=== PATIENT | female | born 1970 | race Caucasian/White ===

== ENCOUNTER 2019-03-05 17:37 | Observation (INO) | payer OTHER, SELFPAY ==
[2019-03-05 17:46] VITALS: BP 130/89; PULSE 98; RESP 20; O2SAT 98; BMI 29.9
--- NOTE | 2019-03-05 18:06 | DI.CT.S_ITS ---
PROCEDURE: CT HEAD/BRAIN WO CON INDICATIONS: cva symptoms since sunday TECHNIQUE: Noncontrast 4.5 mm thick angled axial sections acquired from the foramen magnum to the vertex, with coronal and sagittal reformats. For radiation dose reduction, the following was used: automated exposure control, adjustment of mA and/or kV according to patient size. COMPARISON: None. FINDINGS: Image quality: Excellent. CSF spaces: Basal cisterns are patent. No extra-axial fluid collections. Right lateral ventricle is asymmetrically enlarged compared to the left side with no discrete space-occupying lesion or adjacent parenchymal abnormal density. Brain: No midline shift. No intracranial masses or hemorrhage. Franco-white matter interface is normal. Skull and face: Calvarium and visualized facial bones are intact, without suspicious lesions. Sinuses: Visualized sinuses and mastoids are clear. IMPRESSION: 1. No CT evidence of acute infarction, intracranial bleed or midline shift. 2. Asymmetrically enlarged right lateral ventricle with no discrete space-occupying lesion or adjacent parenchymal abnormality. Findings may represent congenital process. Comparison with prior study if available can be helpful. Dictated by: Dino Parikh M.D. on 03/05/2019 at 18:39 Approved by: Dino Parikh M.D. on 03/05/2019 at 18:44
--- NOTE | 2019-03-05 18:23 | ED_ITS ---
HPI - Neuro Symptoms/Deficit General Chief Complaint: Neuro Symptoms/Deficit Stated Complaint: THINKS POSSIBLY HAVING A STROKE Time Seen by Provider: 03/05/19 18:13 Source: patient Mode of arrival: ambulatory Limitations: no limitations History of Present Illness HPI Narrative: Patient is a 48-year-old female who presents with headache difficulty walking and some numbness. She had a history of migraines spinal st enosis she has been having headaches and 6 days she states that her balance is significantly off more than usual. She does have bright foot drop from her previous spinal surgeries she favors her left leg but he says over last 6 days her balance is not right. She feels like the left side of her face and tongue are numb and maybe her left arm at times. She can't pinpoint when exactly any of the weakness or difficulty walking started. She has been nauseous but only the 1st couple of days when her headache was bad her was also sick with like gastroenteritis so she was not sure that was part of it. He has been having heart palpitations off and on as well. She is worried because her mother suddenly age of 42 for unknown causes Onset (ago): day(s) (6) On Anticoagulants: No Related Data Home Medications Medication Instructions Recorded Confirmed albuterol sulfate [ProAir HFA] 2 puff INHALATION Q4-6H PRN 03/05/19 03/05/19 estradiol 1 mg PO DAILY 03/05/19 03/05/19 pregabalin [Lyrica] 75 mg PO BID 03/05/19 03/05/19 tramadol 50 mg PO Q6H 03/05/19 03/05/19 Allergies Allergy/AdvReac Type Severity Reaction Status Date / Time codeine Allergy Anaphylaxis Verified 03/05/19 17:52 meperidine [From Demerol] Allergy Anaphylaxis Verified 03/05/19 17:52 morphine Allergy Anaphylaxis Verified 03/05/19 17:52 hydrocodone AdvReac Rash Verified 03/05/19 17:52 Review of Systems Review of Systems ROS Unobtainable: All systems reviewed & are unremarkable except as noted in HPI and below Constitutional Constitutional: Denies chills, Denies fever(s), Denies lethargy and Denies weakness Eyes Eyes: Denies change in vision, Denies eye discharge, Denies irritation and Denies loss of vision ENT Ears, Nose, Mouth, and Throat: Denies change in voice, Denies neck pain and Denies sore throat Cardiovascular Cardiovascular: Denies chest pain, Denies irregular heart rhythm, Denies lightheadedness, Denies palpitations, Denies dyspnea, Denies dyspnea on exertion and Denies orthopnea Respiratory Respiratory: Denies cough, Denies dyspnea, Denies dyspnea on exertion and Denies wheezing Gastrointestinal Gastrointestinal: Denies abdominal pain, Denies change in bowel habits, Denies diarrhea, Denies nausea and Denies vomiting Genitourinary Genitourinary: Denies hematuria, Denies flank pain, Denies urinary incontinence and Denies urinary urgency Musculoskeletal Musculoskeletal: Reports as per HPI and Denies neck pain Integumentary/Breasts Skin/Breast: Denies pruritus, Denies erythema, Denies rash and Denies wounds Neurologic Neurologic: Reports as per HPI, Denies loss of vision and Denies weakness Endocrine Endocrine: Denies palpitations Allergic/Immunologic Allergic/Immunologic: Denies wheezing [facility] Medical History Acquired right foot drop (Acute) Exercise-induced asthma (Acute) Rotator cuff arthropathy of both shoulders (Acute) Surgical History H/O total hysterectomy (Acute) History of bladder surgery (Acute) History of lumbar laminectomy (Acute) History of spinal fusion (Acute) S/P bilateral foot surgery (Acute) Social History (Updated 03/05/19 @ 18:45 by Patricia Diamond DO) marital status: Smoking Status: Never smoker Social History marital status: Smoking Status: Never smoker Exam Initial Vital Signs Initial Vital Signs: Vital Signs Pulse Rate 98 H 03/05/19 17:46 Respiratory Rate 20 03/05/19 17:46 Blood Pressure 130/89 03/05/19 17:46 Pulse Oximetry 98 03/05/19 17:46 GENERAL: Well-appearing, well-nourished and in no acute distress. HEENT: Head atraumatic,EOMI, pupils reactive, face symmetric, moist mucous membranes CARDIOVASCULAR: Regular rate and rhythm without murmurs, rubs or gallops. RESPIRATORY: Breath sounds equal bilaterally, no wheezes rales or rhonchi. ABDOMEN: Soft, nontender. Normoactive bowel sounds all 4 quadrants. No guarding or rebound. : No CVA tenderness EXTREMITIES: Normal range of motion, no clubbing or edema. Neurovascularly intact NEUROLOGICAL: Alert and oriented x4.Normal gait and speech. Cranial nerves II through XII grossly intact. Good [id number], difficulty with heel to centeno with left leg she has baseline difficulty with her right leg due to footdrop difficult to assess, strength equal bilaterally, no dysarthria or aphasia, decreased sensation to left face rest of extremities within normal limits, no visual changes, no facial droop SKIN: Warm, dry, no laceration, no petechiae, no rashes or lesions. Scores NIH Stroke Scale Level of Conciousness: Alert, keenly responsive Ask month/age: Answers both questions correctly. Open/close eyes, close hand: Performs both tasks correctly Best gaze horizontal: Normal Visual corbett: No visual loss Facial palsy: Normal symetrical movement Left arm drift: No drift for full 10 sec Right arm drift: No drift for full 10 sec Left leg drift: No drift for full 10 sec Right leg drift: No drift for full 10 sec Limb ataxia: Present in one limb Sensory on face/arms/legs: Mild to moderate sensory loss, can tell touch Best language: No aphasia, normal Dysarthria: Normal Extinction or inattention: No abnormality Total NIH Stroke scale score: 2 Course Orders Ordered: ED Orders 03/05/19 18:34 EKG-12 Lead Stat 03/05/19 18:48 Basic Metabolic Panel Stat Complete Blood Count AUTO DIFF Stat Magnesium Urgent Partial Thromboplastin Time Stat Prothrombin Time INR Stat Troponin I Stat 03/05/19 21:10 Consult to Discharge Planning Routine Consult to Occupational Therapy Evaluate & Treat 03/05/19 21:12 Consult to Physical Therapy Evaluate & Treat 03/05/19 21:13 Consult to Discharge Planning Routine Consult to Occupational Therapy Evaluate & Treat Consult to Physical Therapy Evaluate & Treat Consult to Speech Therapy Evaluate & Treat MR stroke Routine Education, smoking cessation ONGOING Acetaminophen (Tylenol) 650 mg PO Q4HR PRN PRN Reason: As Needed for Fever/Mild Pain Albuterol (Ventolin) 2.5 mg INH [id number] PRN PRN Reason: Shortness Of Breath Or Wheezing Aspirin (Aspirin Ec) 81 mg PO DAILY LESLIE Atorvastatin Calcium (Lipitor) 20 mg PO BEDTIME LESLIE Last Admin: 03/05/19 22:01 Dose: Not Given Documented by: BRADY Heparin Sodium (Porcine) (Heparin) 5,000 unit SUBCUT BID [facility] Sodium Chloride (Normal Saline 0.9%) 1,000 mls @ 100 mls/hr IV CONT [facility] Last Infusion: 03/06/19 02:40 Dose: 100 mls/hr Documented by: Admin: 03/05/19 21:45 Dose: 125 mls/hr Documented by: BRADY Ketorolac Tromethamine (Toradol) 30 mg IV Q6HR [facility] Stop: 03/10/19 21:07 Last Admin: 03/05/19 23:57 Dose: 30 mg Documented by: MADISON Ondansetron HCl (Zofran) 4 mg IV Q8HR PRN PRN Reason: Nausea And Vomiting Pregabalin (Lyrica) 75 mg PO BID LESLIE Tramadol HCl (Ultram) 50 mg PO QID PRN PRN Reason: Pain, Moderate (4-6) Discontinued Medications Aspirin (Aspirin Chew) 324 mg PO NOW ONE Stop: 03/05/19 19:52 Last Admin: 03/05/19 19:56 Dose: 324 mg Documented by: NANCY Sodium Chloride (Normal Saline 0.9%) 1,000 mls @ 150 mls/hr IV CONT [facility] Last Infusion: 03/05/19 20:59 Dose: 150 mls/hr Documented by: Admin: 03/05/19 19:19 Dose: 150 mls/hr Documented by: NANCY Ketorolac Tromethamine (Toradol) 30 mg IV NOW ONE Stop: 03/05/19 19:52 Last Admin: 03/05/19 19:56 Dose: 30 mg Documented by: NANCY Vital Signs Vital signs: Vital Signs - 8 hr 03/05/19 19:20 03/05/19 20:58 Temperature 98.6 F Pulse Rate 93 H 64 Respiratory Rate 22 16 Blood Pressure 120/67 Blood Pressure [Right Arm] 119/77 Pulse Oximetry 99 98 MDM - Neuro Symptoms/Deficit Lab Data Attestation: I reviewed the patient's lab results. Result diagrams: 03/05/19 18:48 03/05/19 18:48 Labs: Lab Results 03/05/19 03/05/19 03/05/19 Range/Units 18:48 18:48 18:48 WBC 6.9 (4.5-11.0) X10^3/uL RBC 4.30 (4.0-5.2) X10^6/uL Hgb 12.8 (12.0-16.0) g/dL Hct 38.4 (36-46) % MCV 89.3 (80-100) fL MCH 29.8 (26-34) PG MCHC 33.4 (30-36) % RDW 13.0 (11.6-14.8) % Plt Count 233 (150-400) X10^3/uL Neut % (Auto) 62.6 (50-75) % Lymph % (Auto) 27.2 (25-40) % Sebastian % (Auto) 8.0 (3-14) % Eos % (Auto) 1.5 L (2-4) % Baso % (Auto) 0.7 (0-2) % Neut # (Auto) 4300 (4453-7719) /uL Lymph # (Auto) 1900 (9567-9139) /uL Sebastian # (Auto) 600 (0-900) /uL Eos # (Auto) 100 (0-450) /uL Baso # (Auto) 0 (0-100) /uL PT 10.7 (10.1-12.7) SECONDS INR 0.9 (0.9-1.3) APTT 36 (26.4-36.2) SECONDS Sodium 139 (137-145) mmol/L Potassium 3.9 (3.4-5.1) mmol/L Chloride 102 (98-107) mmol/L Carbon Dioxide 28 (22-32) mmol/L BUN 15 (7-17) mg/dL Creatinine 0.70 (0.52-1.04) mg/dL Estimated GFR > 60.0 (>60) mL/min BUN/Creatinine Ratio 21.4 (6-22) Glucose 108 H (70-100) mg/dL Hemoglobin A1c (4.0-6.0) % Calcium 9.4 (8.4-10.2) mg/dL Magnesium (1.6-2.3) mg/dL Troponin I < 0.012 (0.01-0.034) ng/mL 03/05/19 03/05/19 Range/Units 18:48 18:48 WBC (4.5-11.0) X10^3/uL RBC (4.0-5.2) X10^6/uL Hgb (12.0-16.0) g/dL Hct (36-46) % MCV (80-100) fL MCH (26-34) PG MCHC (30-36) % RDW (11.6-14.8) % Plt Count (150-400) X10^3/uL Neut % (Auto) (50-75) % Lymph % (Auto) (25-40) % Sebastian % (Auto) (3-14) % Eos % (Auto) (2-4) % Baso % (Auto) (0-2) % Neut # (Auto) (3029-2622) /uL Lymph # (Auto) (5293-0696) /uL Sebastian # (Auto) (0-900) /uL Eos # (Auto) (0-450) /uL Baso # (Auto) (0-100) /uL PT (10.1-12.7) SECONDS INR (0.9-1.3) APTT (26.4-36.2) SECONDS Sodium (137-145) mmol/L Potassium (3.4-5.1) mmol/L Chloride (98-107) mmol/L Carbon Dioxide (22-32) mmol/L BUN (7-17) mg/dL Creatinine (0.52-1.04) mg/dL Estimated GFR (>60) mL/min BUN/Creatinine Ratio (6-22) Glucose (70-100) mg/dL Hemoglobin A1c 5.5 (4.0-6.0) % Calcium (8.4-10.2) mg/dL Magnesium 2.0 (1.6-2.3) mg/dL Troponin I (0.01-0.034) ng/mL Point of Care Testing Glucose POC 103 Urine Dip Bedside Urine Glucose Negative Bedside Urine Bilirubin - Negative Bedside Urine Ketone - Negative Urine Specific Sidney 1.030 Bedside Urine Occult Blood - Negative Bedside Urine pH 5.5 Bedside Urine Protein +/- 15 Bedside Urine Urobilinogen - Negative Bedside Urine Nitrite - Negative Bedside Urine Leukocytes - Negative Esterase Imaging Data CT scan - head: Radiologist's impression: PROCEDURE: CT HEAD/BRAIN WO CON INDICATIONS: unsteady gait TECHNIQUE: Noncontrast 4.5 mm thick angled axial sections acquired from the foramen magnum to the vertex, with coronal and sagittal reformats. For radiation dose reduction, the following was used: automated exposure control, adjustment of mA and/or kV according to patient size. COMPARISON: [facility], CT, CT HEAD/BRAIN WO DONNA, 03/03/2019, 14:13. FINDINGS: Image quality: Excellent. CSF spaces: Basal cisterns are patent. No extra-axial fluid collections. The ventricles are symmetric in size and shape. Brain: No intracranial bleeds or masses. There is cerebral volume loss for age, with resultant ventricular and sulcal prominence. There are periventricular and deep white matter chronic small vessel ischemic changes. Stable 5-6 mm calcification overlying left parietal region unchanged from prior studies. There is intracranial internal carotid artery atherosclerosis. Skull and face: Calvarium and visualized facial bones appear intact, without suspicious lesions. Sinuses: Again noted is opacification of left maxillary sinus suggestive of chronic sinusitis. IMPRESSION: 1. No CT evidence of acute intracranial pathology. No significant changes from previous studies. 2. Age-appropriate atrophy and mild to moderate periventricular white matter microangiopathic changes. 3. Stable likely a tiny calcified meningioma in left parietal region. 4. Stable chronic left maxillary sinusitis. Dictated by: Dino Parikh M.D. on 03/05/2019 at 18:54 Approved by: Dino Parikh M.D. on 03/05/2019 at 18:56 ECG Data Attestation: I personally reviewed and interpreted this ECG as follows: Prior ECG tracings: not available for review Interpretation: Normal sinus rhythm rate 79 p.r. interval [address] changes no T-wave inversions MDM Narrative Medical decision making narrative: The patient's symptoms are not acute they have been ongoing for number of days they are however progressively getting worse with increasing numbness on her face and difficulty walking. She is certainly not a tPA candidate. Symptoms initially started with what seemed like a migraine headache to her. Certainly this could be a continuation of possibly complicated migraine however with increasing numbness certainly concern for CVA. She will need an MRI with progressive worsening symptoms. Unfortunately not able to get at this time Differential diagnosis includes TIA versus CVA versus complicated migraine. Patient's pain improved after Toradol. She is also given aspirin prophylactically. Jaspal PETERSON except for observation. Discharge Plan Departure Patient Disposition: Admitted as Observation Clinical Impression: Brain TIA Discharge Date/Time: 03/05/19 21:14 Admit Date/Time: 03/05/19 21:12 Admit Provider: Dav Shay
--- NOTE | 2019-03-05 18:55 | PC.NURSE ---
pt reports headache/pressure starting on sunday. pt notice intermittent left hand numbness and weakness. states when she is typing at times fingers will slip and she has to shake them. pt also reports left mouth numbness, states she has to think about it when shes talking to move her tongue appropriately. pt seen at walk in clinic and given antibiotics for sinus.
[2019-03-05 18:57] LABS: Add Manual Diff / Slide Review NO; Basophils Absolute Auto 0 /uL (0-100); Basophils Percent Auto 0.7 % (0-2); Eosinophils Absolute Auto 100 /uL (0-450); Eosinophils Percent Auto 1.5 % (2-4); Hematocrit 38.4 % (36-46); Hemoglobin 12.8 g/dL (12.0-16.0); Lymphocytes Absolute Auto 1900 /uL (1100-4500); Lymphocytes Percent Auto 27.2 % (25-40); Mean Corpuscular HGB Conc 33.4 % (30-36); Mean Corpuscular Hemoglobin 29.8 PG (26-34); Mean Corpuscular Volume 89.3 fL (80-100); Monocytes Absolute Auto 600 /uL (0-900); Neutrophils Absolute Auto 4300 /uL (1500-7000); Neutrophils Percent Auto 62.6 % (50-75); Platelet Count 233 X10^3/uL (150-400); White Blood Cell Count 6.9 X10^3/uL (4.5-11.0)
[2019-03-05 19:04] LABS: INR 0.9 (0.9-1.3); Prothrombin Time 10.7 SECONDS (10.1-12.7)
[2019-03-05 19:07] LABS: BUN Creatinine Ratio 21.4 (6-22); Blood Urea Nitrogen 15 mg/dL (7-17); Calcium 9.4 mg/dL (8.4-10.2); Carbon Dioxide 28 mmol/L (22-32); Chloride 102 mmol/L (98-107); Estimated Glomerular Filt Rate > 60.0 mL/min (>60); Glucose 108 mg/dL (70-100); HEMOLYSIS < 15 (0-50); PTT Partial Thromboplastin Tim 36 SECONDS (26.4-36.2); Potassium 3.9 mmol/L (3.4-5.1); Sodium 139 mmol/L (137-145)
[2019-03-05 19:19] LABS: Troponin I < 0.012 ng/mL (0.01-0.034)
[2019-03-05] MEDS: SODIUM CHLORIDE 0.9% 1,000 ML 150 ML IV (19:19)
[2019-03-05 19:20] VITALS: BP 119/77; PULSE 93; RESP 22; TEMP 37; O2SAT 99
[2019-03-05] MEDS: KETOROLAC 60 MG/2 ML VIAL 30 MG IV (19:56)
[2019-03-05] MEDS: ASPIRIN 81 MG CHEW TAB 324 MG PO (19:56)
[2019-03-05 20:58] VITALS: BP 120/67; PULSE 64; RESP 16; O2SAT 98
--- NOTE | 2019-03-05 21:13 | DI.MRI.S_ITS ---
PROCEDURE: MR STROKE Pre- and post-contrast brain MRI, non-contrast brain MR angiogram, pre- and postcontrast neck MR angiogram INDICATIONS: CVA, left facial and upper extremity numbness TECHNIQUE: Brain: Noncontrast axial T1 spin echo, axial T2 fast spin echo, sagittal and axial FLAIR, coronal T2 fast spin echo, axial gradient echo, axial diffusion and ADC through the brain. After the administration of contrast, axial 3D VIBE of the cranial vasculature and brain. Brain MRA: Non-contrast 3-D time of flight MR angiogram, with multiple zrvyeec-rddislagi-psvkzsirmd (MIP) reformats performed. Neck MRA: Axial and sagittal TruFISP through the neck. Coronal dynamic MR angiogram during administration of contrast in the arterial and venous phases, with 3-dimenstional tglykwl-vqohunvsd-rmazrpcrkh (MIP) reformats constructed from subtraction images. COMPARISON: [facility], CT, CT HEAD/BRAIN WO CON, 03/05/2019, 18:16. FINDINGS: Image quality: Excellent. BRAIN: CSF spaces: There is a right ventricle is larger than the left. No mass can be seen to cause this. No shift of the midline septum to the left of 6 mm, without ivette midline shift. Basal cisterns are patent. No extra-axial fluid collections. Brain: No intracranial bleeds or mass effects. Franco-white matter interface is normal. Diffusion weighted images show no acute ischemic insults. Brainstem appears normal. Normal intravascular flow voids are present. No abnormal intracranial enhancement. Skull and face: Calvarial marrow signal is normal. Orbits appear normal. Sinuses: Sinuses and mastoids are clear. BRAIN MR ANGIOGRAM: Anterior circulation: Intracranial internal carotid arteries are normal in size and enhancement. The flow within the paired anterior cerebral arteries is normal and symmetric. The flow within the middle cerebral arteries is normal and symmetric. The anterior communicating artery is seen. No stenoses, occlusions, or aneurysms. Posterior circulation: The visualized portions of the vertebral arteries demonstrate normal caliber, and join to form a normal appearing basilar artery. The flow within the posterior cerebral arteries is normal and symmetric. No stenoses, occlusions, or aneurysms. NECK MR ANGIOGRAM: Carotids: Great vessels demonstrate a conventional anatomy as they arise from the aortic arch. The origins of the common carotid arteries appear patent. The calibers and courses of both common carotid arteries are normal. The bifurcation regions appear normal bilaterally. The internal carotid arteries demonstrate normal course and caliber. Posterior circulation: The origins of the vertebral arteries appear patent. More superior portions of both vertebral arteries demonstrate normal course and caliber, and join to form a normal appearing basilar artery. Miscellaneous: Subclavian arteries appear patent. Pre-contrast images through the neck show no soft tissue abnormalities. IMPRESSION: BRAIN MRI: No findings of acute or subacute infarction can be seen. Asymmetry is noted of the lateral ventricles, with the right larger than the left. No masses can be seen causing this and this is felt most likely to be benign and congenital in nature. No masses or abnormal enhancement can be seen. BRAIN MR ANGIOGRAM: No significant intracranial arterial abnormality is seen. NECK MR ANGIOGRAM: Within the arteries of the neck, no hemodynamically significant stenosis can be seen. Dictated by: Kishore Jones M.D. on 03/06/2019 at 9:51 Approved by: Kishore Jones M.D. on 03/06/2019 at 10:00
--- NOTE | 2019-03-05 21:18 | DI.ECHO.S_ITS ---
[facility] +---------+ : : [address] : : : : [id number] : : : : Phone: [phone] Echocardiogram Report + + :Name: YOLANDA NIELSEN Study Date: 03/06/2019 Height: 66 in : :[facility] Exam Location: [place] Weight: 186 lb : : Gender: Female BSA: 1.9 m2 : :: 1970 Age: 48 yrs BP: 110/70 mmHg: :Reason For Study: CVA : : Performed By: Leonid Lawson : :Referring: CHANNING LYNN : + + Interpretation Summary 1) Normal left ventricular thickness, size, wall motion, and systolic function (EF 60-65%). 2) Normal right ventricular size and function. 3) No significant valvular abnormalities. 4) Injection of contrast with valsalva documented an interatrial shunt. 5) No prior Echo available for comparison. Procedure: A two-dimensional transthoracic echocardiogram with color flow and Doppler was performed. The study quality was technically good. There is no prior echocardiogram noted for this patient. A saline contrast injection was performed to assess for cardiac shunting. The patient was in normal sinus rhythm during the exam. Left Ventricle: The left ventricle is normal in size. There is normal left ventricular wall thickness. The ejection fraction is estimated to be 60-65%. There are no focal wall motion abnormalities. Right Ventricle: The right ventricle is normal in size and function. Atria: Both atria are normal in size. Injection of contrast with valsalva documented an interatrial shunt. Mitral Valve: The mitral valve is normal in structure and function. There is trace mitral regurgitation. Aortic Valve: The aortic valve is trileaflet. The aortic valve opens well. No aortic regurgitation is present. Tricuspid Valve: The tricuspid valve is normal in structure and function. There is mild tricuspid regurgitation. The right ventricular systolic pressure is estimated to be at least 23 mmHg based on an estimated right atrial pressure of 3 mm Hg. Pulmonic Valve: The pulmonic valve is normal in structure and function. There is trace pulmonic regurgitation. Great Vessels: The aortic root is normal size. The dimensions of the ascending aorta are normal. The pulmonary artery is normal size. The IVC is of normal diameter and collapses greater than 50% with a sniff. This suggests a low right atrial pressure of 3 mm Hg. Pericardium/ Pleura There is no pericardial effusion. There is no pleural effusion. MMode/2D Measurements & Calculations LVIDd: 5.0 cm LVOT diam: 2.0 cm LVIDs: 3.4 cm Ao root diam: 3.1 cm FS: 31.4 % Aortic Jxn: 2.6 cm EPSS: 0.65 cm asc Aorta Diam: 3.2 cm IVSd: 0.76 cm LVPWd: 0.95 cm LV garcia. diameter/BSA (cm/m^2): 2.6 LV sys. diameter/BSA (cm/m^2): 1.8 LA dimension: 3.2 cm RA long axis: 4.7 cm LA A2 area: 20.7 cm2 RA area: 15.5 cm2 LA A4 area: 17.5 cm2 RA vol: 43.7 ml LA length (vol): 5.0 cm RA : 22.5 ml/m2 LA vol: 61.6 ml IVC diam: 1.2 cm LA vol index: 31.8 ml/m2 Doppler Measurements & Calculations Ao V2 max: 114.4 cm/sec LVOT Max Destin: 102.6 cm/sec Ao V2 mean: 89.3 cm/sec LV V1 max P.2 mmHg Ao max P.2 mmHg LV V1 VTI: 24.8 cm Ao mean P.2 mmHg COCO(I,D): 2.9 cm2 Ao V2 VTI: 25.7 cm COCO(V,D): 2.7 cm2 sev ratio: 0.96 COCO indexed to BSA (cm^2/m^2): 1.5 MV E max destin: 62.4 cm/sec TR max destin: 221.9 cm/sec MV A max destin: 39.0 cm/sec TR max P.7 mmHg MV E/A: 1.6 PA V2 max: 57.0 cm/sec Med Peak E' Destin: 11.0 cm/sec PA V2 mean: 42.8 cm/sec E/E' med: 5.7 PA mean P.79 mmHg Lat Peak E' Destin: 14.2 cm/sec PA pr(Accel): 11.6 mmHg E/E' lat: 4.4 PA Accel Time: 0.14 sec E/e' average: 5.0 MV dec time: 0.21 sec SV(LVOT): 75.2 ml Reading Physician:10:59 AM
--- NOTE | 2019-03-05 21:21 | PM.HP.1 ---
History of Present Illness History of Present Illness Date Patient Seen: 03/05/19 Time Patient Seen: 20:22 Chief complaint: THINKS POSSIBLY HAVING A STROKE Narrative: Ms. Lee is a right-handed 48-year-old female with a prior history of migraines, spinal stenosis, multiple spinal surgeries with right foot drop, exercise-induced asthma and mild postural orthostatic tachycardia syndrome who presents to the ER today with persistent headache for 6 days. The patient states her symptoms began 6 days ago with a severe headache on Sunday. She describes the symptoms as quick in onset and at that time had pressure behind the eyes and face. On Sunday she went to urgent care related to to nausea and facial pressure and was started on Augmentin for sinus infection. The patient has developed associated symptoms of photosensitivity, visual changes bilaterally with inability to focus but denies visual field loss, episodic dizziness and left arm numbness. She has now developed left face and tongue numbness prompting her presentation to the emergency department. The patient complains of ongoing frontal headache rated at 4.5/10 and improving following Toradol, reports ongoing difficulty focusing without diplopia, no complaints of dizziness. She denies difficulty chewing or swallowing. She reports no recent fevers or chills and has no complaints of chest pain though she has been feeling palpitations since the onset of her headache. She denies shortness of breath or cough. She reports no abdominal pain, nausea vomiting, diarrhea or constipation. She has a history of frequent UTIs but denies dysuria but does report frequency but she relates to her spinal stenosis. She Has a right footdrop following spinal surgery and has an AFO that she does not use consistently and as such has falls related to this. Upon arrival in the ER the patient is afebrile with a temperature of 98.6?, heart rate of 98, blood pressure 130/89, respirations of 20 saturating 98% on room air. The patient was evaluated with a CT which found right lateral ventricle with symmetrical enlargement over left without presence of lesions or parenchymal density, acute infarct, intracranial bleed or midline shift. An EKG is obtained which find sinus rhythm without ectopy or block. On laboratory analysis she has a normal white cell count at 6.9 hemoglobin of 12.8, hematocrit of 30.4 and platelets 233. Her coags are all within normal limits as are all her chemistry findings. She has nonfasting glucose of 108 and her troponin is less than 0.012. This time the patient is admitted for ongoing evaluation workup for her neurological symptoms, rule out CVA. Patient History Medical History (Updated 03/05/19 @ 22:18 by KRISTEN Robison) Acquired right foot drop (Acute) Exercise-induced asthma (Acute) Rotator cuff arthropathy of both shoulders (Acute) Surgical History (Updated 03/05/19 @ 21:59 by Karissa Luz RN) H/O total hysterectomy (Acute) History of bladder surgery (Acute) History of lumbar laminectomy (Acute) History of spinal fusion (Acute) S/P bilateral foot surgery (Acute) Social History (Updated 03/05/19 @ 18:45 by Patricia Diamond DO) marital status: Smoking Status: Never smoker Family & Social History Safety & Behavioral: Feels Safe in Current Yes Environment Been Physically Hurt or No Threatened By a Person Tobacco & Substance use: Smoking Status Never smoker alcohol intake frequency holiday/special occasion Substance Use Type does not use Comment: Patient lives in a single family 2 story house with her Matthew. Her parents are both with her mother passing away at age 42 from it VT or CVA, her father had a history of asbestosis rheumatoid arthritis and lung transplant and was on dialysis and circ come to a head injury. She has 1 brother to whom she is estranged and is unsure of his health history but believes he has had kidney stones. She has a daughter has postural orthostatic tachycardic syndrome. 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 Smoking: Patient has never smoked. Alcohol: Patient consumes a couple of glasses of wine per month. Substance use: Patient denies recreation pharmaceuticals, herbal or cannabis products. Advanced directives: The patient does not have an advanced directive. In direct discussion with the patient she states her wish to be FULL CODE but does not want long-term life support. She designates her Matthew to be her surrogate decision maker. Meds Home Medications and Allergies Home Medications Medication Instructions Recorded Confirmed Type albuterol sulfate [ProAir HFA] 2 puff INHALATION Q4-6H PRN 03/05/19 03/05/19 History estradiol 1 mg PO DAILY 03/05/19 03/05/19 History pregabalin [Lyrica] 75 mg PO BID 03/05/19 03/05/19 History tramadol 50 mg PO Q6H 03/05/19 03/05/19 History Allergies Allergy/AdvReac Type Severity Reaction Status Date / Time codeine Allergy Anaphylaxis Verified 03/05/19 17:52 meperidine [From Demerol] Allergy Anaphylaxis Verified 03/05/19 17:52 morphine Allergy Anaphylaxis Verified 03/05/19 17:52 hydrocodone AdvReac Rash Verified 03/05/19 17:52 Review of Systems Review of Systems ROS Unobtainable: All systems reviewed & are unremarkable except as noted in HPI and below Exam Vital Signs (past 8 hours): - 03/05/19 17:46 03/05/19 19:20 03/05/19 20:58 Temperature 98.6 F Pulse Rate 98 H 93 H 64 Respiratory Rate 20 22 16 Blood Pressure 130/89 120/67 Blood Pressure [Right Arm] 119/77 Pulse Oximetry 98 99 98 Oxygen Delivery Method Room Air Narrative Exam Narrative: GENERAL APPEARANCE: well developed, overweight female with a BMI of 31.6, in moderate discomfort. HEAD: slight facial droop, atraumatic, no scalp lesions. EYES: No ptosis, photosensitivity right greater than left, pupils equal, round, reactive to light and accommodation, visual corbett intact, sclera non-icteric, extraocular movement intact without nystagmus. EARS: normal external structures, no ear pain NOSE: Increased head pain with sinus percussion ORAL CAVITY: mucosa moist without lesions or exudate, palate normal, tongue in midline. THROAT: normal, no erythema, no exudate, posterior pharynx normal. NECK/THYROID: neck pain on palpation without palpable muscular tension or spasms, no jugular venous distention, no carotid bruit, no thyromegaly, trachea midline. LYMPH NODES: no cervical or supraclavicular lymphadenopathy. SKIN: warm and dry, no suspicious lesions, no rashes, good turgor. HEART: regular rate and rhythm, S1-S2 without murmur, no rubs or gallops, brisk capillary refill, no edema LUNGS: clear to auscultation bilaterally, no coarseness crackles or wheezing, no cough present CHEST: Symmetrical movement, no accessory muscle use, shortness of breath but no pain to AP and lateral compression. ABDOMEN: Soft, no distention, no epigastric or abdominal tenderness on palpation, no guarding or peritoneal signs, no organomegaly, active bowel tones. BACK: Back pain with right straight leg raise EXTREMITIES: moves all extremities, no drift, gross motor is 5/5 and symmetrical, right foot drop, no deformities or joint effusions. 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 PSYCH: alert, briskly responsive, cognitive function and recall are intact, good eye contact, appropriate with stable behavior Objective Labs Result Diagrams: 03/05/19 18:48 03/05/19 18:48 Labs: Laboratory Results - last 24 hr 03/05/19 03/05/19 03/05/19 18:48 18:48 18:48 WBC 6.9 RBC 4.30 Hgb 12.8 Hct 38.4 MCV 89.3 MCH 29.8 MCHC 33.4 RDW 13.0 Plt Count 233 Neut % (Auto) 62.6 Lymph % (Auto) 27.2 Parker % (Auto) 8.0 Eos % (Auto) 1.5 L Baso % (Auto) 0.7 Neut # (Auto) 4300 Lymph # (Auto) 1900 Parker # (Auto) 600 Eos # (Auto) 100 Baso # (Auto) 0 PT 10.7 INR 0.9 APTT 36 Sodium 139 Potassium 3.9 Chloride 102 Carbon Dioxide 28 BUN 15 Creatinine 0.70 Estimated GFR > 60.0 BUN/Creatinine Ratio 21.4 Glucose 108 H Calcium 9.4 Troponin I < 0.012 Assessment & Plan Assessment & Plan narrative: This is a 48-year-old female patient who had an onset of severe headache 6 days ago and has persisted since. Patient has had associated symptoms including visual disturbances both a photosensitivity as well as difficulty focusing, nausea, ataxia and presents with left facial numbness and droop and left upper extremity numbness. 1. Acute severe headache with left face and arm numbness, rule out CVA, present on admission. -risk factor of hormone replacement therapy with estradiol but no known history of hypertension, diabetes or hyperlipidemia. -patient has had severe headaches 6 days in duration, associated visual changes, episodes of dizziness, left face and left upper extremity numbness -patient with prior history of migraines varying in frequency with last migraine 1 week before this episode, previously migraines have been non hemiparetic, this is a change in headache presentation. -head CT finds symmetrically enlarged right lateral ventricle without hydrocephalus. No evidence of lesion or parenchymal density, no acute infarct or bleed. -patient reports neck pain, is afebrile, negative Kernig's or Brudzinski sign., white count is normal with no coagulopathy or electrolyte derangement or hyperglycemia -aspirin 324 mg given in the ER, will continue aspirin 81 mg daily. -NPO except meds. Speech therapy for swallow evaluation. -obtain MR stroke, echocardiogram in the morning. -PT and OT to consult and treat. -obtain lipid panel, TSH and hemoglobin A1c 2. Chronic migraine headaches, active -symptoms are now inconsistent with prior migraines, reports non characteristic symptoms, has never been hemiparetic or lasted this long. -will continue to treat pain with Toradol or tramadol. 3. Chronic postural orthostatic hypotensive syndrome, active. -patient denies complaints of dizziness and describes her symptoms as mild presenting with rapid movement from sitting to standing. -she does endorse episodes of sudden onsets of dizziness within the last week sustaining no trauma. -maintain adequate hydration, normal saline 125 cc/hour 4. Chronic spinal stenosis following multiple back surgeries and fusion, stable. -patient with chronic back pain following trauma in 2002. Subsequent spinal fusion in 2006. -patient with residual right footdrop following surgery. Inconsistently uses AFO brace due to ill fit. Denies left leg weakness. -continue home medications of tramadol 50 mg every 6 hours as needed for pain, Lyrica 75 mg twice daily. -PT and OT to evaluate and treat. 5. Chronic Exercise-induced asthma, stable, not present on admission. -no evidence of wheezing with adequate oxygenation 96-98% on room air. No complaints of shortness of breath or wheezing. -RT to consult, albuterol neb as needed. The patient is admitted to the hospital for continued treatment and evaluation of neurological symptoms and rule out migraine versus CVA versus hydrocephalus. The patient is admitted as an inpatient with expected length of stay to be greater than 2 midnights. Scores GCS [place] coma scale eye opening: Spontaneous [place] coma scale verbal response: Orientated Newton coma scale motor response: Obey commands Newton coma scale total score: 15 NIHSS Level of Conciousness: Alert, keenly responsive Ask month/age: Answers both questions correctly. Open/close eyes, close hand: Performs both tasks correctly Best gaze horizontal: Normal Visual corbett: No visual loss Facial palsy: Minor paralysis, flattened nasolabial fold, asymmetry on smiling Left arm drift: No drift for full 10 sec Right arm drift: No drift for full 10 sec Left leg drift: No drift for full 5 sec Right leg drift: No drift for full 5 sec Limb ataxia: Absent Sensory on face/arms/legs: Mild to moderate sensory loss, can tell touch Best language: No aphasia, normal Dysarthria: Normal Extinction or inattention: No abnormality Total NIH Stroke scale score: 2
[2019-03-05 21:24] VITALS: BMI 29.9
[2019-03-05 21:30] VITALS: BP 113/70; PULSE 59; RESP 20; TEMP 36.4; O2SAT 96
[2019-03-05 21:35] LABS: Hemoglobin A1C% w Est Avg Glu 5.5 % (4.0-6.0)
[2019-03-05] MEDS: SODIUM CHLORIDE 0.9% 1,000 ML 125 ML IV (21:45)
--- NOTE | 2019-03-05 21:51 | PC.ADMIT ---
[facility] Admission Note: The patient,YOLANDA NIELSEN,48 y/o, was given written information regarding hospital policies, unit procedures and contact persons. Patient's smoking status: Never smoker. Vital Signs - 8 hr 03/05/19 17:46 03/05/19 19:20 03/05/19 20:58 Temperature 98.6 F Pulse Rate 98 H 93 H 64 Respiratory Rate 20 22 16 Blood Pressure 130/89 120/67 Blood Pressure [Right Arm] 119/77 Pulse Oximetry 98 99 98 03/05/19 21:30 Temperature 97.6 F Pulse Rate 59 L Respiratory Rate 20 Blood Pressure 113/70 Blood Pressure [Right Arm] Pulse Oximetry 96 Patient admitted to AC room 211 from ED, alert and oriented. independently ambulatory in room. Oriented to room, environment and plan of care.
[2019-03-05 22:45] VITALS: BMI 31.6
[2019-03-05 23:00] VITALS: O2SAT 97
[2019-03-05] MEDS: KETOROLAC 30 MG/ML VIAL IV (23:57)
[2019-03-05 23:59] VITALS: BP 114/72; PULSE 65; RESP 16; TEMP 36.1; O2SAT 96
--- NOTE | 2019-03-06 00:25 | PC.NURSE ---
Addendum entered by Tia Ward R.N. 03/06/19 06:07: NIH now 3 as no longer seeing a left facial droop. Numbness continues in left upper lip, tongue and cheek and now states numbness in left arm which she states comes and goes. Also has chronic numbness in right leg. States pain after taking Tramadol is now 4/10; medicated with scheduled Toradol. Addendum entered by Tia Ward R.N. 03/06/19 05:01: 0415 Correction to previous entries: NIH was actually 4 and is currently remains at a 4. States headache is 6/10 so medicated with Tramadol with sips water as per h&p note as is otherwise NPO. Assisted to bathroom and voided 200cc dark betzy urine and UA sent to lab. Addendum entered by Tia Ward R.N. 03/06/19 02:22: NIH remains 3. Numbness of left lower lip resolved but still has numbness in left upper lip, tongue and cheek. Original Note: Patient is alert and oriented. Breath sounds diminished at bases but CTA with RA sat of 96%; on continuous oximetry. HRR with telemetry reading of SR at 0000. Denies nausea. BT present and abdomen is soft. Denies dysuria, frequency or urgency. Reports chronic, intermittent numbness of right LE. Currently with NIH of 3 due to left arm/leg drift and numbness of left tongue, lip and cheek. Reports several near falls in recent months so instructed to call for assistance when getting out of bed; verbalizes understanding. Complains of headache; medicated with scheduled Toradol. Able to turn self in bed. Wearing bilateral SCD's. Fall risk score is moderate; bed alarm is activated.
[2019-03-06 04:30] VITALS: BP 114/68; PULSE 55; RESP 16; TEMP 36.3; O2SAT 99
[2019-03-06] MEDS: TRAMADOL 50 MG TABLET PO (04:48)
[2019-03-06 04:57] LABS: Appearance Urine UA CLEAR; Bilirubin Urine UA NEGATIVE (NEGATIVE); Color Urine UA YELLOW; Glucose Urine UA NEGATIVE (Negative); Ketones Urine UA NEGATIVE (NEGATIVE); Leukocyte Esterase Urine UA NEGATIVE (NEGATIVE); Nitrite Urine UA NEGATIVE (Negative); Occult Blood Urine UA NEGATIVE (Negative); Protein Urine UA NEGATIVE (Negative); Specific Gravity Urine UA >=1.030 (1.000-1.035); Urobilinogen Urine UA 0.2 E.U./dL (0.2); pH Urine UA 5.5 (4.5-8.0)
[2019-03-06 05:09] LABS: Urine Amphetamines Negative (Negative); Urine Barbiturates Negative (Negative); Urine Benzodiazepines Negative (Negative); Urine Cocaine Negative (Negative); Urine MDMA Negative (Negative); Urine Methadone Negative (Negative); Urine Methamphetamines Negative (Negative); Urine Morphine/Opi cutoff 2000 Negative (Negative); Urine Oxycodone Negative (Negative); Urine Phencyclidine Negative (Negative); Urine Tetrahydrocannabinol Negative (Negative); Urine Tricyclic Antidepressant Negative (Negative)
[2019-03-06 05:21] LABS: Bacteria Urine Occasional (0-1); Culture Indicated Urine Cult Not Indicated; RBC Urine 0-1/HPF (0-5/HPF); Squamous Epithelial Cell Urine 5-10 /HPF (0-5/HPF); WBC Urine 1-5/HPF (0-5/HPF)
[2019-03-06] MEDS: KETOROLAC 30 MG/ML VIAL IV ×2 (05:59→11:43)
[2019-03-06 06:25] LABS: Add Manual Diff / Slide Review NO; Basophils Absolute Auto 0 /uL (0-100); Basophils Percent Auto 0.8 % (0-2); Eosinophils Absolute Auto 100 /uL (0-450); Eosinophils Percent Auto 2.1 % (2-4); Hematocrit 37.6 % (36-46); Hemoglobin 12.9 g/dL (12.0-16.0); Lymphocytes Absolute Auto 1700 /uL (1100-4500); Lymphocytes Percent Auto 42.9 % (25-40); Mean Corpuscular HGB Conc 34.3 % (30-36); Mean Corpuscular Hemoglobin 30.3 PG (26-34); Mean Corpuscular Volume 88.4 fL (80-100); Monocytes Absolute Auto 400 /uL (0-900); Monocytes Percent Auto 9.7 % (3-14); Neutrophils Absolute Auto 1800 /uL (1500-7000); Neutrophils Percent Auto 44.5 % (50-75); Platelet Count 203 X10^3/uL (150-400); Red Blood Cell Count 4.25 X10^6/uL (4.0-5.2); Red Cell Distribution Width 13.1 % (11.6-14.8)
[2019-03-06 06:30] LABS: BUN Creatinine Ratio 21.4 (6-22); Blood Urea Nitrogen 15 mg/dL (7-17); Calcium 8.7 mg/dL (8.4-10.2); Carbon Dioxide 29 mmol/L (22-32); Chloride 104 mmol/L (98-107); Estimated Glomerular Filt Rate > 60.0 mL/min (>60); Glucose 126 mg/dL (70-100); HEMOLYSIS < 15 (0-50); Potassium 3.8 mmol/L (3.4-5.1); Sodium 141 mmol/L (137-145)
[2019-03-06 06:32] LABS: Cholesterol 164 mg/dL (140-199); HDL Cholesterol 44 mg/dL (40-60); LDL Cholesterol Calculated 93 mg/dL (<100); Triglycerides 136 mg/dL (35-150)
[2019-03-06 07:01] LABS: Thyroid Stimulating Hormone 0.76 uIU/mL (0.47-4.68)
[2019-03-06 08:00] VITALS: BP 110/70; PULSE 67; RESP 16; TEMP 36.5; O2SAT 98
[2019-03-06 08:30] VITALS: O2SAT 98
[2019-03-06] MEDS: SODIUM CHLORIDE 0.9% 1,000 ML 100 ML IV (08:35)
[2019-03-06] MEDS: HEPARIN 5,000 UNIT/ML VIAL 5000 UNIT SUBCUT (08:37)
[2019-03-06] MEDS: ASPIRIN EC 81 MG TABLET PO (08:37)
[2019-03-06] MEDS: PREGABALIN 75 MG CAPSULE PO (08:37)
--- NOTE | 2019-03-06 10:21 | PC.NURSE ---
Pt to MRI for stroke protocol via w/c, IV helplocked.
[2019-03-06] MEDS: SUMAtriptan 25 MG TABLET 100 MG PO (11:43)
--- NOTE | 2019-03-06 12:27 | PT-IP ANOTE ---
Physical therapy order received. Chart reviewed. Spoke with her nurse and the physician. Pt is up moving independently in her room. She has a supportive Spouse at home. No skilled physical therapy needs identified at this time. Will discharge PT order.
--- NOTE | 2019-03-06 12:32 | OT.IP.TRT ---
Current Diagnoses Transient cerebral ischemic attack, unspecified (03/05/19) Cerebral infarction, unspecified (03/05/19) Spinal stenosis, site unspecified (03/05/19) Personal history of other diseases of the musculoskeletal system and connective tissue (03/05/19) Occupational Therapy Treatment Note M3 OT- IP Subjective and Pain Start: 03/06/19 12:28 Freq: Status: Active Protocol: Document 03/06/19 12:28 [facility] (Rec: 03/06/19 12:32 [facility] [id number]) OT- Subjective Occupational Therapy Visit Type Type Patient Refusal Notes Approached pt for OT eval, pt feels that she is at baseline level and states has been independent in the room. Pt has supportive who will assist pt as needed. Pt refusing OT eval at this time.
--- NOTE | 2019-03-06 14:41 | P.DS_ITS ---
History of Present Illness History of Present Illness Date Patient Seen: 03/05/19 Chief complaint: THINKS POSSIBLY HAVING A STROKE Narrative: Written by Dav PETERSON: Ms. Lee is a right-handed 48-year-old female with a prior history of migraines, spinal stenosis, multiple spinal surgeries with right foot drop, exercise-induced asthma and mild postural orthostatic tachycardia syndrome who presents to the ER today with persistent headache for 6 days. The patient states her symptoms began 6 days ago with a severe headache on Sunday. She describes the symptoms as quick in onset and at that time had pressure behind the eyes and face. On Sunday she went to urgent care related to to nausea and facial pressure and was started on Augmentin for sinus infection. The patient has developed associated symptoms of photosensitivity, visual changes b ilaterally with inability to focus but denies visual field loss, episodic dizziness and left arm numbness. She has now developed left face and tongue numbness prompting her presentation to the emergency department. The patient complains of ongoing frontal headache rated at 4.5/10 and improving following Toradol, reports ongoing difficulty focusing without diplopia, no complaints of dizziness. She denies difficulty chewing or swallowing. She reports no recent fevers or chills and has no complaints of chest pain though she has been feeling palpitations since the onset of her headache. She denies shortness of breath or cough. She reports no abdominal pain, nausea vomiting, diarrhea or con stipation. She has a history of frequent UTIs but denies dysuria but does report frequency but she relates to her spinal stenosis. She Has a right footdrop following spinal surgery and has an AFO that she does not use consistently and as such has falls related to this. Upon arrival in the ER the patient is afebrile with a temperature of 98.6?, heart rate of 98, blood pressure 130/89, respirations of 20 saturating 98% on room air. The patient was evaluated with a CT which found right lateral ventricle with symmetrical enlargement over left without presence of lesions or parenchymal density, acute infarct, intracranial bleed or midline shift. An EKG is obtained which find sinus rhythm without ectopy or block. On laboratory analysis she has a normal white cell count at 6.9 hemoglobin of 12.8, hematocrit of 30.4 and platelets 233. Her coags are all within normal limits as are all her chemistry findings. She has nonfasting glucose of 108 and her troponin is less than 0.012. This time the patient is admitted for ongoing evaluation workup for her neurological symptoms, rule out CVA. Discharge Providers Provider Date of admission: 03/05/19 21:12 Discharge Date: 03/06/19 Consults: 03/05/19 21:10 Consult to Discharge Planning Routine Comment: Consult to Occupational Therapy Evaluate & Treat Comment: CVA, LUE weak and numb, ataxia, falls Physician Instructions: Evaluate and treat 03/05/19 21:12 Consult to Physical Therapy Evaluate & Treat Comment: CVA, LUE weak and numb, ataxia, falls Physician Instructions: Evaluate and Treat 03/05/19 21:13 Consult to Discharge Planning Routine Comment: Consult to Occupational Therapy Evaluate & Treat Comment: Physician Instructions: Evaluate and treat Consult to Physical Therapy Evaluate & Treat Comment: Physician Instructions: Evaluate and Treat Consult to Speech Therapy Evaluate & Treat Comment: CVA, left facial, left upper extremity numbness Physician Instructions: Evaluate and treat 03/05/19 21:33 Consult to Respiratory Therapy Evaluate & Treat Comment: Exercise induced asthma Physician Instructions: Evaluate and treat Discharge provider: Shilpa Murphy DO Summary Hospital Course Discharge Diagnosis: 1. Acute on chronic complex migraine with face and arm numbness and left facial droop, present on admission. Resolved. CVA ruled out. 2. Chronic postural orthostatic hypotensive syndrome, present on admission. Stable. 3. Chronic spinal stenosis, status post multiple back surgeries and fusion, present on admission. Stable. 4. Chronic exercise-induced asthma, not present on admission. Stable. Hospital Course: Esha Almaguer is a 48-year-old female with a past medical history signi ficant for spinal stenosis, postural orthostatic hypotension syndrome, and chronic migraine headaches who presented to the ED with severe progressive migraine headache x 6 days with associated symptoms including visual disturbances both a photosensitivity as well as difficulty focusing, nausea, ataxia and presents with left facial numbness and droop and left upper extremity numbness. 1. Acute on chronic complex migraine with face and arm numbness and left facial droop, present on admission. Resolved. CVA ruled out. -CV risk factors: Hormone replacement therapy with estradiol. No history of hypertension, hyperlipidemia or diabetes. -Secondary to recurrent and intractable complex migraine with current 6 days in duration and associated visual changes, episodes of dizziness, left facial droop and left face and left upper extremity numbness. Patient recently ran out of Maxalt and likely reason for advancing migraine presentation. -Patient with prior history of migraines varying in frequency 3-4 headaches a month, associated aura, and last migraine 1 week prior to current episode. -CT brain demonstrated asymmetrically enlarged right lateral ventricle without hydrocephalus. No evidence of lesion or parenchymal density, no acute infarct or bleed. -MR stroke protocol demonstrated no findings of acute or subacute infarction can be seen, asymmetry is noted of the lateral ventricles, with the right larger than the left, no masses can be seen causing this and this is felt most likely to be benign and congenital in nature; no masses or abnormal enhancement can be seen, no significant intracranial arterial abnormality is seen, no hemodynamically significant stenosis in neck areries can be seen. -Patient reports neck pain but is afebrile, negative Kernig's or Brudzinski sign, with normal WBC without coagulopathy or electrolyte derangement or hyperglycemia. -Received aspirin 324 mg in ED and continued aspirin 81 mg daily until CVA ruled out. -Risk stratified with hemoglobin A1c normal at 5.5% and fasting lipid panel which was within normal limits and demonstrated: Total cholesterol 164, triglycerides 136, LDL 93, and HDL 44. -TSH normal at 0.76 -Restarted triptan with sumatriptan 100 mg every 2 hours for migraine with near complete resolution of headache. Discharged with prescription for Maxalt and recommend neurology evaluation for chronic, recurrent, intractable migraine headaches. 2. Chronic postural orthostatic hypotensive syndrome, present on admission. Sta ble.. -Patient denies complaints of dizziness and describes her symptoms as mild presenting with rapid movement from sitting to standing. -She does endorse episodes of sudden onsets of dizziness within the last week sustaining no trauma. -Continued IV fluid hydration until adequately hydrated then discontinued. 3. Chronic spinal stenosis, status post multiple back surgeries and fusion, present on admission. Stable. -Patient with chronic back pain following trauma in 2002. Subsequent spinal fusi on in 2006. -Patient with residual right footdrop following surgery. Inconsistently uses AFO brace due to ill fit. Denies left leg weakness. -Continued home medications of tramadol 50 mg every 6 hours as needed for pain and Lyrica 75 mg twice daily. -Consulted PT for evaluation and treatment. Patient without focal neurological deficits and no needs. 4. Chronic exercise-induced asthma, not present on admission. Stable. -No active asthma with adequate oxygenation and SpO2 96-98% on room air. No complaints of shortness of breath or wheezing. -RT consulted and will provide albuterol nebs if needed. Exam Vital Signs (past 8 hours): - 03/06/19 08:00 03/06/19 08:30 Temperature 97.7 F Pulse Rate 67 Respiratory Rate 16 Blood Pressure 110/70 Pulse Oximetry 98 98 Oxygen Delivery Method Room Air Oxygen Flow Rate 0 Narrative Exam Narrative: General: Middle age female lying in bed and in no acute distress, well- developed, well-nourished, mild photophobia and mild frontal lobe headache but appropriately interactive otherwise. HEENT: Normocephalic, atraumatic. External ears without defect. Pupils equal, round, and reactive to light. Anicteric sclerae, moist conjunctivae, and no lid lag. Oropharynx free of erythema and cobble stoning with moist mucosa. No facial droop. Neck: Supple with full range of motion. No jugular venous distension. No bruits. No lymphadenopathy or thyromegaly. Cardiovascular: Regular rate and rhythm without murmurs, rubs, or gallops appreciated Pulmonary: Clear to auscultation bilaterally without crackles, wheezes, or rhonchi. Normal respiratory effort without use of accessory muscles. Abdomen: Soft, bowel sounds present, nontender, nondistended. No h epatosplenomegaly or masses appreciated. Extremities: No clubbing, cyanosis, or edema. Skin: Normal temperature, turgor, and texture; no rash, ulcers, or subcutaneous nodules appreciated. Neurological: Cranial nerves grossly intact. Normal muscle strength, tone, and bulk. Reflexes, coordination, and sensory function within normal limits. No known gait impairment. No facial droop, resolved. Mild photophobia with mild frontal lobe headache, improved. No focal neurological deficits. Psychiatric: Normal mood and affect. Alert and oriented to person, place, and time. Objective Labs Result Diagrams: 03/06/19 05:51 03/06/19 05:57 Labs: Laboratory Results - last 24 hr 03/05/19 03/05/19 03/05/19 18:48 18:48 18:48 WBC 6.9 RBC 4.30 Hgb 12.8 Hct 38.4 MCV 89.3 MCH 29.8 MCHC 33.4 RDW 13.0 Plt Count 233 Neut % (Auto) 62.6 Lymph % (Auto) 27.2 [place] % (Auto) 8.0 Eos % (Auto) 1.5 L Baso % (Auto) 0.7 Neut # (Auto) 4300 Lymph # (Auto) 1900 [place] # (Auto) 600 Eos # (Auto) 100 Baso # (Auto) 0 PT 10.7 INR 0.9 APTT 36 Sodium 139 Potassium 3.9 Chloride 102 Carbon Dioxide 28 BUN 15 Creatinine 0.70 Estimated GFR > 60.0 BUN/Creatinine Ratio 21.4 Glucose 108 H Hemoglobin A1c Calcium 9.4 Magnesium Troponin I < 0.012 Triglycerides Cholesterol LDL Cholesterol, Calc HDL Cholesterol TSH Urine Color Urine Appearance Urine pH Ur Specific [place] Urine Protein Urine Glucose (UA) Urine Ketones Urine Occult Blood Urine Nitrate Urine Bilirubin Urine Urobilinogen Ur Leukocyte Esterase Urine RBC Urine WBC Ur Squamous Epith Cells Urine Bacteria Ur Culture Indicated? Urine Opiates Screen Ur Oxycodone Screen Urine Methadone Screen Ur Barbiturates Screen U Tricyclic Antidepress Ur Phencyclidine Scrn Ur Amphetamines Screen U Methamphetamines Scrn Ur MDMA Scrn (Ecstasy) U Benzodiazepines Scrn Urine Cocaine Screen U Marijuana (THC) Screen 03/05/19 03/05/19 03/06/19 18:48 18:48 04:42 WBC RBC Hgb Hct MCV MCH MCHC RDW Plt Count Neut % (Auto) Lymph % (Auto) [place] % (Auto) Eos % (Auto) Baso % (Auto) Neut # (Auto) Lymph # (Auto) [place] # (Auto) Eos # (Auto) Baso # (Auto) PT INR APTT Sodium Potassium Chloride Carbon Dioxide BUN Creatinine Estimated GFR BUN/Creatinine Ratio Glucose Hemoglobin A1c 5.5 Calcium Magnesium 2.0 Troponin I Triglycerides Cholesterol LDL Cholesterol, Calc HDL Cholesterol TSH Urine Color Urine Appearance Urine pH Ur Specific [place] Urine Protein Urine Glucose (UA) Urine Ketones Urine Occult Blood Urine Nitrate Urine Bilirubin Urine Urobilinogen Ur Leukocyte Esterase Urine RBC Urine WBC Ur Squamous Epith Cells Urine Bacteria Ur Culture Indicated? Urine Opiates Screen Negative Ur Oxycodone Screen Negative Urine Methadone Screen Negative Ur Barbiturates Screen Negative U Tricyclic Antidepress Negative Ur Phencyclidine Scrn Negative Ur Amphetamines Screen Negative U Methamphetamines Scrn Negative Ur MDMA Scrn (Ecstasy) Negative U Benzodiazepines Scrn Negative Urine Cocaine Screen Negative U Marijuana (THC) Screen Negative 03/06/19 03/06/19 03/06/19 04:42 05:51 05:57 WBC 4.0 L RBC 4.25 Hgb 12.9 Hct 37.6 MCV 88.4 MCH 30.3 MCHC 34.3 RDW 13.1 Plt Count 203 Neut % (Auto) 44.5 L Lymph % (Auto) 42.9 H [place] % (Auto) 9.7 Eos % (Auto) 2.1 Baso % (Auto) 0.8 Neut # (Auto) 1800 Lymph # (Auto) 1700 [place] # (Auto) 400 Eos # (Auto) 100 Baso # (Auto) 0 PT INR APTT Sodium Potassium Chloride Carbon Dioxide BUN Creatinine Estimated GFR BUN/Creatinine Ratio Glucose Hemoglobin A1c Calcium Magnesium Troponin I Triglycerides 136 Cholesterol 164 LDL Cholesterol, Calc 93 HDL Cholesterol 44 TSH Urine Color Yellow Urine Appearance Clear Urine pH 5.5 Ur Specific [place] >=1.030 H Urine Protein Negative Urine Glucose (UA) Negative Urine Ketones Negative Urine Occult Blood Negative Urine Nitrate Negative Urine Bilirubin Negative Urine Urobilinogen 0.2 Ur Leukocyte Esterase Negative Urine RBC 0-1/hpf Urine WBC 1-5/hpf Ur Squamous Epith Cells 5-10 /hpf H Urine Bacteria Occasional (0-1) Ur Culture Indicated? Cult not indicated Urine Opiates Screen Ur Oxycodone Screen Urine Methadone Screen Ur Barbiturates Screen U Tricyclic Antidepress Ur Phencyclidine Scrn Ur Amphetamines Screen U Methamphetamines Scrn Ur MDMA Scrn (Ecstasy) U Benzodiazepines Scrn Urine Cocaine Screen U Marijuana (THC) Screen 03/06/19 03/06/19 05:57 05:57 WBC RBC Hgb Hct MCV MCH MCHC RDW Plt Count Neut % (Auto) Lymph % (Auto) [place] % (Auto) Eos % (Auto) Baso % (Auto) Neut # (Auto) Lymph # (Auto) [place] # (Auto) Eos # (Auto) Baso # (Auto) PT INR APTT Sodium 141 Potassium 3.8 Chloride 104 Carbon Dioxide 29 BUN 15 Creatinine 0.70 Estimated GFR > 60.0 BUN/Creatinine Ratio 21.4 Glucose 126 H Hemoglobin A1c Calcium 8.7 Magnesium Troponin I Triglycerides Cholesterol LDL Cholesterol, Calc HDL Cholesterol TSH 0.76 Urine Color Urine Appearance Urine pH Ur Specific [place] Urine Protein Urine Glucose (UA) Urine Ketones Urine Occult Blood Urine Nitrate Urine Bilirubin Urine Urobilinogen Ur Leukocyte Esterase Urine RBC Urine WBC Ur Squamous Epith Cells Urine Bacteria Ur Culture Indicated? Urine Opiates Screen Ur Oxycodone Screen Urine Methadone Screen Ur Barbiturates Screen U Tricyclic Antidepress Ur Phencyclidine Scrn Ur Amphetamines Screen U Methamphetamines Scrn Ur MDMA Scrn (Ecstasy) U Benzodiazepines Scrn Urine Cocaine Screen U Marijuana (THC) Screen Discharge Plan Discharge Plan Patient Disposition: Home Discharge comment: Your being discharged home. You have not had a stroke. You likely had a complex migraine with neurological sequelae. Please follow-up with your primary care provider within the next 1 week regarding your hospitalization. Recommend referral to Neurology for further evaluation and treatment of your chronic intractable migraine headaches. 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 You also have what is called a patent foramen ovale which is a congenital abnormality of the heart that is essentially a small hole in in between your top chambers of your heart that did not close. If you ever developed an arrhythmia (ex. atrial fibrillation) that puts you at risk of blood clot this could put you at further risk of stroke. You were provided a temporary prescription for Maxalt to use to fatmata your headaches. Please obtain a sleep study to ensure that you do not have sleep apnea and if so you need to be treated to help control your migraine headaches better and to prevent the risk of heart attack stroke and early-onset dementia. Discharge Med Rec/Prescriptions Prescriptions: New rizatriptan 10 mg tablet 10 mg PO Q2-4H PRN (Reason: migraine headache) Qty: 10 RF: 0 Continued tramadol 50 mg Tablet 50 mg PO Q6H RF: 0 estradiol 1 mg Tablet 1 mg PO DAILY RF: 0 albuterol sulfate [ProAir HFA] 90 mcg/actuation Hfa Aerosol Inhaler 2 puff INHALATION Q4-6H PRN (Reason: Wheezing) RF: 0 Lyrica 75 mg Capsule 75 mg PO BID RF: 0 Provider Discharge Instructions Diet: Diet as Tolerated Activity: Activity as tolerated Visit Report/Discharge Packet Instructions: Migraine -- Adult, DI for Migraine, Rizatriptan, Rizatriptan (By mouth) Discharge Data Attending Provider: Dav Shay Admit Date/Time: 03/05/19 21:12 Discharges patient from system. Discharge Date/Time: 03/06/19 15:15
--- NOTE | 2019-03-06 15:49 | CM.DANOTE ---
Discharge Planning/Care Management DCP: assessment: case received, EMR reviewed. Discussed case in Team Rounds. Pt is a 48 year old female who admitted to care of hospitalist team last night. Payer: [facility] Medical Admission status: OBS: confirmed by UR JESSICA Kwon. Dr. Murphy noted in rounds that MRI and ECHO were as well as PT and OT but that dx was likely a complex migraine and that pt had hx of same. She stated that she would likely d/c pt to home setting today. PT and OT did check in on pt but both notes indicate pt said she was up independently in room. She had a supportive spouse and that further evaluations were not indicated. Went to room to check in on pt. A d/c order was noted with specifics of the outpt followup recommendations. Room empty. Pt and her had already left forl home. CM Discharge Assessment Start: 03/06/19 15:48 Freq: Status: Active Protocol: Document 03/06/19 15:48 ITV (Rec: 03/06/19 15:48 ITV [id number]) Discharge Planning Assessment Advance Directives? No History Provided By Medical Record Prior Living Arrangements House Independent with ADL's Yes Is patient alert and oriented? Yes Review Status In Process
== END 2019-03-06 15:15 | disposition home or self-care (01) ==
LOC: ED 20:20 → AC 21:13
PROVIDERS: Emergency Medicine; Admitting Provider Nurse Practitioner Adult Health; Emergency Provider Emergency Medicine; Visit Provider Nurse Practitioner Adult Health
DX: M48.00 Spinal stenosis, site unspecified (principal); R29.818 Other symptoms and signs involving the nervous system; G43.909 Migraine, unspecified, not intractable, without status migrainosus; I95.1 Orthostatic hypotension; J45.909 Unspecified asthma, uncomplicated
CPT/HCPCS: 36415; 36591; 70450; 70548; 70553; 80048; 80061; 80305; 81001; 81003; 82962; 83036; 83735; 84443; 84484; 85025; 85610; 85730; 93005; 93306; 96361; 96374; 99284; 99285; G0378; A9579; J1644; J1885